=== PATIENT | female | born 1940 | race Caucasian/White ===

== ENCOUNTER → 2019-03-07 | Outpatient (CLI) | payer MEDICARE, OTHER ==
--- NOTE | 2019-03-07 14:34 | KCIC ---
BRAIN W/O CONTRAST Date: 03/07/2019 11:45 AM Indication: Memory loss, history of head trauma Comparison: None. Technique: Multiplanar multisequence MRI of the brain was performed without intravenous contrast using the standard protocol. Findings: No acute infarct. No acute or chronic hemorrhage. The ventricles are normal in size and configuration without hydrocephalus. Cystic foci in the right anterior temporal lobe adjacent to the MCA bifurcation measuring 1 cm. Mild scattered FLAIR hyperintensities in the subcortical and periventricular deep white matter, a nonspecific finding, most commonly seen with chronic small vessel ischemic disease. Mild generalized cerebral volume loss The scalp and calvarium are normal. The pituitary and sella are normal. No Chiari malformation. Mild incompletely characterized degenerative spondylosis of the visualized upper cervical spine. The visualized orbits and globes are normal. Mild frontal and ethmoid sinus mucosal thickening. The mastoid air cells are clear. Normal flow voids within the vertebral, basilar, and internal carotid arteries indicating patency. IMPRESSION: 1. No acute infarct, hemorrhage, or hydrocephalus. 2. Cystic focus in the right anterior temporal lobe measuring 1.0 cm. This probably represents a benign entity such as an anterior temporal lobe perivascular space or neuroepithelial cyst, however postcontrast imaging is recommended to ensure no suspicious enhancing components. 3. Mild chronic small vessel ischemic disease and age-appropriate generalized cerebral volume loss. Electronically signed by: Ej Cordero MD (03/07/2019 2:30 PM) [id number]
== END | disposition home or self-care (01) ==
LOC: KCIC MRI 11:32
PROVIDERS: ATTEND Psychiatry & Neurology Neurology with Special Qualifications in Child Neurology
DX: I67.82 Cerebral ischemia (principal); J34.89 Other specified disorders of nose and nasal sinuses; M47.812 Spondylosis without myelopathy or radiculopathy, cervical region
CPT/HCPCS: 70551

== ENCOUNTER → 2019-03-23 | Outpatient (CLI) | payer MEDICARE, OTHER ==
[~2019-03-23] MED LIST: GADOTERATE 7.5 MMOL/15ML VIAL. IVP ONE
--- NOTE | 2019-03-23 15:05 | KCIC ---
BRAIN W/CONTRAST History: Memory loss. History of trauma. Cystic lesion on prior noncontrast brain MRI. Technique: Multiplanar, multi sequential MR imaging was performed of the brain without contrast. Comparison: March 07, 2019. Findings: Right anterior temporal cystic lesion measures 1.2 x 0.7 cm. No pathologic enhancement. Left pituitary cystic lesion, unchanged. No hydrocephalus. Patent dural venous sinuses. Imaged paranasal sinuses and mastoid air cells are clear. Impression: 1. Right anterior temporal cystic lesion, may represent prominent perivascular space or neuroepithelial cyst. No pathologic enhancement. Electronically signed by: Cheikh Grover DO (03/23/2019 3:03 PM) [id number]
== END | disposition home or self-care (01) ==
LOC: KCIC MRI 10:48
PROVIDERS: ATTEND Psychiatry & Neurology Neurology with Special Qualifications in Child Neurology
DX: S09.90XA Unspecified injury of head, initial encounter (principal); G93.89 Other specified disorders of brain; R41.3 Other amnesia; X58.XXXA Exposure to other specified factors, initial encounter; Y93.89 Activity, other specified; Y92.89 Other specified places as the place of occurrence of the external cause; Y99.8 Other external cause status
CPT/HCPCS: 70552; 82565; A9575